=== PATIENT | male | born 1995 | race Two or more races ===

== ENCOUNTER 2016-11-04 20:57 | Emergency (ER) | payer MEDICAID, OTHER ==
[~2016-11-04] VITALS: Ht 177.8 cm; Wt 97.5 kg
[2016-11-04] MEDS ORDERED: ACETAMINOPHEN WITH CODEINE 300/30MG TABLET PO ONE (22:15)
[2016-11-04 22:40] VITALS: BP 123/72
== END 2016-11-04 22:40 | disposition home or self-care (01) ==
LOC: ER 20:57
DX: G89.18 Other acute postprocedural pain (principal); K62.89 Other specified diseases of anus and rectum; Z98.890 Other specified postprocedural states
CPT/HCPCS: 99283